=== PATIENT | male | born 1945 | race Caucasian/White ===

== ENCOUNTER → 2018-08-30 | Outpatient (CLI) | payer MEDICARE, OTHER ==
--- NOTE | 2018-08-30 12:32 | Diagnostic Imaging Report ---
INDICATION: Stiffness of the neck. Headaches. Neck pain. COMPARISON: None. FINDINGS: Frontal, lateral, open-mouth, and swimmer's views of the cervical spine were obtained. Cervical spine is seen down to the C7-T1 level on the swimmer's view. Postsurgical changes of previous anterior fusion at C6-C7 are noted. Intervertebral disc spacer material is also present. Hardware is intact. No unexpected radiopaque foreign bodies are seen. There is no evidence of hardware fracture or failure. AP static alignment is maintained. There is no significant ly- or retro-listhesis. There is no evidence of jumped facets. Open-mouth view also demonstrates normal C1-C2 alignment. Vertebral body heights are maintained. There is no evidence of acute fracture. No significant degenerative changes are identified. Surrounding soft tissue structures are unremarkable. Included portions of the lung apices are clear. IMPRESSION: 1. No acute fracture or dislocation of the cervical spine. 2. Postsurgical changes at C6-C7 as described above. No evidence of hardware fracture or failure. Dictated by: Dictated on workstation # [id number]
== END ==
LOC: RAD 10:40
PROVIDERS: ATTEND Chiropractor Sports Physician
DX: M54.2 Cervicalgia (principal); Z98.1 Arthrodesis status
CPT/HCPCS: 72040

== ENCOUNTER → 2019-09-01 | Outpatient (CLI) | payer MEDICARE, OTHER ==
--- NOTE | 2019-09-01 15:42 | Diagnostic Imaging Report ---
PROCEDURE: MR imaging of the cervical spine without contrast. TECHNIQUE: Multiplanar, multisequence MR imaging of the cervical spine was performed without contrast. INDICATION: Neck pain and bilateral shoulder pain. COMPARISON: No prior studies are available for comparison. FINDINGS: Curvature and alignment of the cervical spine is normal. There are postop changes of ACDF with anterior plate and screws transfixing the C6-C7 level. Hardware does create moderate artifact. Marrow signal intensity is unremarkable. There is generalized degenerative disc disease with variable disc space narrowing and desiccation. Cervical cord demonstrates normal signal intensity. The craniocervical junction is unremarkable. C2-C3: Small midline disc bulge/osteophyte is noted, but no resultant central canal stenosis is seen. Neural foramina are patent bilaterally. C3-C4: Broad-based endplate osteophytes indent the ventral thecal sac, but no significant central canal narrowing is seen. Neural foramina are patent. C4-C5: Broad-based disc/osteophyte complex indents the ventral thecal sac. There is also significant thickening and perhaps calcification within the ligamentum flavum at this level. This produces severe central canal stenosis. AP dimension of the canal is approximately 5 mm. There is also significant right and moderate left neural foraminal stenosis. C5-C6: Broad-based disc/osteophyte complex indents the ventral thecal sac. There is significant ligamentum flavum thickening and perhaps calcification, similar to the level above producing severe central canal stenosis. AP dimension of the canal is approximately 5 mm. There is also severe bilateral neural foraminal stenosis. C6-C7: Central canal is patent. There is no significant neural foraminal stenosis. C7-T1: Central canal is patent. There does appear to be moderate bilateral neural foraminal stenosis. Paraspinous tissues are unremarkable. IMPRESSION: 1. Postop changes of ACDF at the C6-C7 level. 2. Severe central canal and neural foraminal stenosis at the C4-C5 and C5-C6 levels, as described above. Dictated by: Dictated on workstation # [id number]
== END ==
LOC: RAD 14:08
PROVIDERS: ATTEND Nurse Practitioner Family
DX: M48.02 Spinal stenosis, cervical region (principal); M47.22 Other spondylosis with radiculopathy, cervical region; Z98.1 Arthrodesis status
CPT/HCPCS: 72141